=== PATIENT | male | born 1975 | race Caucasian/White ===

== ENCOUNTER 2017-04-14 10:34 | Day surgery (SDC) | payer BC, OTHER ==
[2017-04-12 13:08] VITALS: BMI 40.3
--- NOTE | 2017-04-14 03:48 | HP ---
HISTORY AND PHYSICAL CHIEF COMPLAINT: Occlusion of T-tube of the left ear. HISTORY OF PRESENT ILLNESS: This patient is a 42-year-old male who was recently seen in our office complaining of having drainage from the left ear. In the past, the patient had a T-type ventilation tube inserted into the left ear. At the time that he was seen in my office, clinical examination revealed that the T-tube appeared to be partially occluded and there was significant drainage coming from the left ear. The patient was placed on a 2 week course of antibiotic ear drops, Floxin. At the time that he was seen back in the office, the infection had cleared, but it appeared that the T-tube was occluded. Therefore, it was recommended that the patient undergo replacement of the T-tube tube under either IV sedation or general anesthesia. PAST MEDICAL HISTORY: Past medical history reveals that he has allergies to PENICILLIN, ERYTHROMYCIN and BACTRIM. His current medications include Diovan. Previous surgeries include left myringotomy with insertion of ventilation tube times 6 and right myringotomy with insertion of ventilation tubes x3, adenoidectomy, tonsillectomy and bilateral knee surgery. REVIEW OF SYSTEMS: Review of systems reveals that the cardiovascular system is positive for hypertension. The remainder of the review of systems is essentially unremarkable. PHYSICAL EXAMINATION: This patient is a 42-year-old male who is alert and cooperative. HEENT EXAMINATION: Patient is normocephalic. Examination of the right ear is unremarkable. The left ear reveals the patient has a T-tube present, which is occluded. The ear is dry. Pupils equal, round, react to light and accommodation. Extraocular movements within normal limits. Intranasal examination reveals moderate to severe septal deviation with compensatory hypertrophy of the inferior turbinates. Examination of the oropharynx, cranial nerves 2 through 12 and the remainder of the head, neck exam are all within normal limits. CHEST/CARDIOVASCULAR: Both lung cox are clear to percussion and auscultation. The patient is in regular sinus rhythm. S1 and S2 are present without evidence of any murmurs, S3s or S4. Peripheral pulses are bilaterally symmetrical and within normal limits. ABDOMEN: There is no evidence of any masses, megaly, or tenderness. The abdomen is soft. Skin is unremarkable. Musculoskeletal and neurological is unremarkable. RECTAL EXAM: The rectal exam is deferred at this time because the patient has this done on a regular basis at his family physician's office. The remainder of the physical exam is essentially unremarkable. IMPRESSION: Occluded left ventilation tube. PLAN: The patient is scheduled to undergo replacement of left T-type ventilation under either IV sedation or general anesthesia depending upon the anesthesia department's preference. Attention RNs in the pre-surgical area, I have not ordered any pre-surgical prophylactic antibiotics for this patient. If the pharmacy department sends any pre- surgical prophylactic antibiotics to the pre-surgical area for this patient, the should be returned and that order should be cancelled. Please make sure that the patient's account is credited appropriately. I have discussed the risks, benefits and alternative therapies for the above-mentioned procedure and for both sedation/analgesia as well as necessary blood product administration, if indicated, as they pertain to this patient. The patient has indicated his or her understanding and acceptance of the risks and procedures discussed. SOHEILA / KRISN: [id number] /
[~2017-04-14 10:34] MED LIST: DEXAMETHASONE SOD PHOSPHATE 10 MG/ML 1 ML VIAL IV ONE; HYDROmorphone 0.5 MG/0.5 ML SYRINGE IVP PRN; LACTATED RINGERS 1,000 ML IV SCH; LIDOCAINE 1% 20 ML VIAL (10MG/ML) FOR IV START INTRADERMA PRN; MIDAZOLAM 2 MG/2 ML VIAL IV PRN; ONDANSETRON 4 MG/2 ML VIAL IVP ONE; Pre Op ABX Message 1 EACH MISC MISCELLANE ONE; SCOPOLAMINE 1.5MG/72HR PATCH TRANSDERM ONE
[2017-04-14 11:35] VITALS: RESP 16; TEMP 97.7
[2017-04-14] MEDS ORDERED: GLYCOPYRROLATE 0.2 MG/ML 2 ML VIAL ONE (12:34)
[2017-04-14] MEDS ORDERED: KETOROLAC 30 MG/ML 1 ML VIAL ONE (12:34)
[2017-04-14] MEDS ORDERED: fentaNYL (PF) 50 MCG/ML 2 ML AMP ONE (12:34)
[2017-04-14] MEDS ORDERED: PROPOFOL 10 MG/ML 20 ML VIAL IV ONE (12:34)
[2017-04-14] MEDS ORDERED: MIDAZOLAM 2 MG/2 ML VIAL ONE (12:34)
[2017-04-14] MEDS ORDERED: KETAMINE 10 MG/ML 20 ML VIAL ONE (12:34)
[2017-04-14] MEDS ORDERED: OFLOXACIN 0.3% OTIC DROPS 5 ML BTL LEFT EAR ONE (12:50)
[2017-04-14] MEDS ORDERED: EPINEPHrine 1 MG/ML 1 ML AMP SQ ONE (13:03)
[2017-04-14 14:31] VITALS: BP 141/80; PULSE 76
--- NOTE | 2017-04-14 20:58 | PCN ---
PROCEDURE NOTE PREOPERATIVE DIAGNOSIS: Occluded left T-type ventilation tube. POSTOPERATIVE DIAGNOSES: 1. Occluded left T-type ventilation tube. 2. Left chronic serous otitis media. ANESTHESIA: IV sedation with MAC. OPERATIVE PROCEDURE: Left myringotomy with insertion of a Travis T-type ventilation tube. OPERATING SURGEON: Dr. Almaraz. COMPLICATIONS: None. OPERATIVE PROCEDURE: The patient was placed on operating table in the supine position and after uneventful induction and IV sedation, satisfactory sedation was obtained. Next, using the Zeiss operating microscope and a #3 aural speculum, the left external auditory canal was cleansed of all wax and debris. There was some dried blood in the canal and this was removed with a pair of alligator forceps. In addition to this, there was dried cerumen adherent to the left tympanic membrane. The T-tube was completely occluded and partially extruded. The T-tube was removed along with the waxy material that was adherent to the left tympanic membrane. Immediately that there was only a very small space anteriorly that would allow the insertion of a ventilation tube. Therefore, using the myringotomy knife, an incision was made in the anterior inferior quadrant of the left tympanic membrane. The left middle ear space was suctioned free of all fluid. Initially, an Activent T-type ventilation tube was attempted to be inserted, but unfortunately because of the size of this tube, it was not possible. This was mainly because the area of the tympanic membrane that was available for insertion was quite small. Therefore, it was elected to switch to a Travis T-type ventilation tube instead. This tube was inserted in the usual and customary fashion. At this point, the procedure was terminated. There were no intraoperative complications. Patient tolerated the procedure well and was returned to recovery room in satisfactory condition. MMODL / IJN: [id number] /
== END 2017-04-14 14:53 | disposition home or self-care (01) ==
LOC: OR 10:34
PROVIDERS: ATTEND Otolaryngology
DX: T85.898A Other specified complication of other internal prosthetic devices, implants and grafts, initial encounter (principal); H65.22 Chronic serous otitis media, left ear; I10 Essential (primary) hypertension; Z88.1 Allergy status to other antibiotic agents; Z88.0 Allergy status to penicillin; Z88.2 Allergy status to sulfonamides; Z79.899 Other long term (current) drug therapy; Z79.82 Long term (current) use of aspirin
CPT/HCPCS: 69436; J2250; J0171; J1100; J2405; J3010; J1885; J2704

== ENCOUNTER → 2017-06-06 | Outpatient (CLI) | payer OTHER ==
--- NOTE | 2017-06-06 08:18 | CT ---
EXAMINATION TYPE: CT abdomen pelvis w con DATE OF EXAM: 06/06/2017 COMPARISON: NONE HISTORY: Abdomiinal pain CT DLP: 3103.90 mGycm Automated exposure control for dose reduction was used. TECHNIQUE: Helical acquisition of images was performed from the lung bases through the pelvis. CONTRAST: Performed with Oral Contrast and with IV Contrast, patient injected with 100 ml mL of Omnipaque 300. FINDINGS: LUNG BASES: No significant abnormality is appreciated. LIVER/GB: No significant abnormality is appreciated. No cholelithiasis. PANCREAS: No significant abnormality is seen. No ductal dilatation. SPLEEN: No splenomegaly. ADRENALS: No nodularity or thickening. KIDNEYS: Kidneys enhance and excrete symmetrically. No hydronephrosis. FREE AIR: No free air is visualized. RETROPERITONEAL ADENOPATHY: None visualized REPRODUCTIVE ORGANS: Prostate gland is nonenlarged. URINARY BLADDER: Urinary bladder appears unremarkable. PELVIC ADENOPATHY: None visualized. OSSEOUS STRUCTURES: Mild multilevel degenerative changes of the visualized thoracolumbar spine are s een. BOWEL: Scattered colonic diverticula are seen without pericolonic fat stranding. Appendix is within normal limits. OTHER: Small bilateral fat filled inguinal hernias are noted. No abutting bowel. Abdominal aorta is o f normal course and caliber. Small periumbilical fat filled hernia has a neck measuring 1.2 cm. IMPRESSION: 1. NO ACUTE FINDING TO ACCOUNT FOR THE PATIENT'S SYMPTOMS. 2. BILATERAL SMALL FAT FILLED INGUINAL HERNIAS AND SMALL PERIUMBILICAL FAT FILLED HERNIA.
== END | disposition home or self-care (01) ==
LOC: RADCTMAIN 07:31
PROVIDERS: ATTEND Surgery
DX: K40.20 Bilateral inguinal hernia, without obstruction or gangrene, not specified as recurrent (principal); K42.9 Umbilical hernia without obstruction or gangrene
CPT/HCPCS: 74177; Q9967

== ENCOUNTER → 2017-09-04 | Outpatient (CLI) | payer OTHER ==
[2017-09-04 17:11] LABS: Appearance,BF Cloudy; Color,BF Yellow
[2017-09-04 17:12] LABS: Nucleated Cells, Body Fluid 2800 /uL; RBC, Body Fluid 800 /uL
[2017-09-04 17:15] LABS: Mononuclear WBC,Body Fluid 10 %; Polynuclear WBC,Body Fluid 90 %; Total Cells Counted,Body Fluid 100
== END | disposition home or self-care (01) ==
LOC: LABWHC1 14:59
PROVIDERS: ATTEND Orthopaedic Surgery
DX: M79.671 Pain in right foot (principal); M25.571 Pain in right ankle and joints of right foot
CPT/HCPCS: 36415; 84550; 87070; 87075; 87205; 89050; 89060

== ENCOUNTER 2018-10-17 13:51 | Emergency (ER) | payer OTHER ==
--- NOTE | 2018-10-17 14:11 | ED ---
Lower Extremity Injury HPI - General Chief Complaint: Extremity Injury, Lower Stated Complaint: [facility] rt foot injury Time Seen by Provider: 10/17/18 14:02 Source: patient Mode of arrival: ambulatory Limitations: no limitations - History of Present Illness Initial Comments: Patient is a 43-year-old male presenting to the ER with complaints of right foot pain after dropping a table onto his foot about an hour ago. Patient is able to bear weight and wiggle his toes. Patient denies pain in his ankle. Patient describes his pain as more soreness. Patient denies numbness and tingling. Patient denies any other injuries at this time. No significant past medical history. - Related Data Home Medications Medication Instructions Recorded Confirmed Aspirin [Adult Low Dose Aspirin EC] 81 mg PO QAM 04/12/17 04/14/17 Fexofenadine HCl [Sade Allergy] 180 mg PO DAILY 04/12/17 04/14/17 Valsartan/Hydrochlorothiazide 160 mg PO QAM 04/12/17 04/14/17 [Diovan Hct 160-12.5 mg Tab] Allergies Allergy/AdvReac Type Severity Reaction Status Date / Time erythromycin base AdvReac Abdominal Verified 10/17/18 14:02 Pain Penicillins AdvReac Swelling Verified 10/17/18 14:02 Review of Systems ROS Statement: Those systems with pertinent positive or pertinent negative responses have been documented in the HPI. ROS Other: All systems not noted in ROS Statement are negative. Past Medical History Past Medical History: Blood Disorder, Hypertension Additional Past Medical History / Comment(s): sarcoidosis of lungs, leiden factor 5 History of Any Multi-Drug Resistant Organisms: None Reported Past Surgical History: Adenoidectomy, Ear Surgery, Orthopedic Surgery, Tonsillectomy Additional Past Surgical History / Comment(s): scopes and removal of bone chip Past Anesthesia/Blood Transfusion Reactions: No Reported Reaction Past Psychological History: No Psychological Hx Reported Smoking Status: Never smoker Past Alcohol Use History: None Reported Past Drug Use History: None Reported General Exam - General Exam Comments Initial Comments: GENERAL: Well-appearing, well-nourished and in no acute distress. HEAD: Atraumatic, normocephalic. EYES: Pupils equal round and reactive to light, extraocular movements intact, sclera anicteric, conjunctiva are normal. ENT: TMs normal, nares patent, oropharynx clear without exudates. Moist mucous membranes. NECK: Normal range of motion, supple without lymphadenopathy or JVD. LUNGS: Breath sounds clear to auscultation bilaterally and equal. No wheezes rales or rhonchi. HEART: Regular rate and rhythm without murmurs, rubs or gallops. ABDOMEN: Soft, nontender, normoactive bowel sounds. No guarding, no rebound. No masses appreciated. : Deferred EXTREMITIES: Pain with palpation on the dorsal aspect of the right foot on the proximal aspect of the first through third toes. There is an area of edema and ecchymosis with a table hip. Right foot is neurovascular intact. Full range of motion of all right toes and ankle. NEUROLOGICAL: Cranial nerves II through XII grossly intact. Normal speech, normal gait. PSYCH: Normal mood, normal affect. SKIN: Warm, Dry, normal turgor, no rashes or lesions noted. Limitations: no limitations Course Vital Signs 10/17/18 14:00 Temperature 98.9 F Pulse Rate 106 H Respiratory 18 Rate Blood Pressure 133/90 O2 Sat by Pulse 96 Oximetry Medical Decision Making - Medical Decision Making Patient is a 43-year-old male presenting to the ER with complaints of right foot pain after dropping a table on it today. Patient is neurovascular intact. Pain, edema, and ecchymosis over the right distal foot dorsal aspect. X-ray of the right foot reveals no acute fractures/dislocations. Patient will be discharged home. Disposition Clinical Impression: Contusion of right foot Disposition: HOME SELF-CARE Condition: Stable Instructions (If sedation given, give patient instructions): Foot Contusion (ED) Additional Instructions: Please return to the Emergency Department if symptoms worsen or any other concerns. Follow up with PCP and 10-12 days if pain continues for reevaluation. Is patient prescribed a controlled substance at d/c from ED?: No Referrals: Eulalio Pena MD [Primary Care Provider] - 1-2 days
--- NOTE | 2018-10-17 14:35 | XR ---
EXAMINATION TYPE: XR foot complete RT DATE OF EXAM: 10/17/2018 COMPARISON: NONE HISTORY: Pain TECHNIQUE: Three views are submitted. FINDINGS: The osseous structures are intact. There is no acute fracture or dislocation. Arthropathy of the f irst MTP joint. Calcaneal spurs noted.. IMPRESSION: 1. No acute fracture or dislocation. If symptoms persist, follow-up exam in 7 to 10 days could be ob tained.
[2018-10-17 14:49] VITALS: BP 132/89; PULSE 89; RESP 16; TEMP 98.7
== END 2018-10-17 14:48 | disposition home or self-care (01) ==
LOC: EC 13:51
DX: S90.31XA Contusion of right foot, initial encounter (principal); I10 Essential (primary) hypertension; Z88.0 Allergy status to penicillin; Z88.1 Allergy status to other antibiotic agents; Z79.82 Long term (current) use of aspirin; Z79.899 Other long term (current) drug therapy; W20.8XXA Other cause of strike by thrown, projected or falling object, initial encounter; Y99.0 Civilian activity done for income or pay
CPT/HCPCS: 99283

== ENCOUNTER 2019-05-22 02:39 | Emergency (ER) | payer BC, OTHER ==
[2019-05-22 02:47] VITALS: BP 149/98; RESP 18
[2019-05-22] MEDS ORDERED: FAMOTIDINE 20 MG TAB PO STA (03:11)
[2019-05-22] MEDS ORDERED: ONDANSETRON 4 MG ODT STARTER PACK 2 TAB BTL PO STA (03:11)
[2019-05-22] MEDS ORDERED: diphenhydrAMINE 50 MG/ML 1 ML VIAL IM STA (03:11)
--- NOTE | 2019-05-22 03:16 | ED ---
Allergic Reaction HPI - General Chief complaint: Allergic Reaction Stated complaint: Allergic Reaction Time Seen by Provider: 05/22/19 02:56 Source: patient, RN notes reviewed, old records reviewed Mode of arrival: ambulatory - History of Present Illness Initial Comments: 44 year old male with sinusitis and upper respiratory congestion. Patient reports that he was started on cefdinir and has taken 3 pills of this. Patient reports history of penicillin allergy. PAtient reports since taking these medication a red rash over chest, nausea, and diarrhea. - Related Data Home Medications Medication Instructions Recorded Confirmed Aspirin [Adult Low Dose Aspirin EC] 81 mg PO QAM 04/12/17 04/14/17 Fexofenadine HCl [Sade Allergy] 180 mg PO DAILY 04/12/17 04/14/17 Valsartan/Hydrochlorothiazide 160 mg PO QAM 04/12/17 04/14/17 [Diovan Hct 160-12.5 mg Tab] Previous Rx's Medication Instructions Recorded Doxycycline [Vibramycin] 100 mg PO BID #14 cap 05/22/19 Famotidine [Pepcid] 20 mg PO BID #12 tablet 05/22/19 diphenhydrAMINE [Benadryl] 25 mg PO BID PRN #20 capsule 05/22/19 Allergies Allergy/AdvReac Type Severity Reaction Status Date / Time erythromycin base AdvReac Abdominal Verified 05/22/19 02:46 Pain Penicillins AdvReac Swelling Verified 05/22/19 02:46 Review of Systems ROS Statement: Those systems with pertinent positive or pertinent negative responses have been documented in the HPI. ROS Other: All systems not noted in ROS Statement are negative. Past Medical History Past Medical History: Blood Disorder, Hypertension Additional Past Medical History / Comment(s): sarcoidosis of lungs, leiden factor 5 History of Any Multi-Drug Resistant Organisms: None Reported Past Surgical History: Adenoidectomy, Ear Surgery, Orthopedic Surgery, Tonsillectomy Additional Past Surgical History / Comment(s): scopes and removal of bone chip Past Anesthesia/Blood Transfusion Reactions: No Reported Reaction Past Psychological History: No Psychological Hx Reported Smoking Status: Never smoker Past Alcohol Use History: Occasional Past Drug Use History: None Reported General Exam Limitations: physical limitation General appearance: alert, in no apparent distress Head exam: Present: atraumatic, normocephalic, normal inspection Eye exam: Present: normal appearance, PERRL, EOMI. Absent: scleral icterus, conjunctival injection, periorbital swelling ENT exam: Present: normal exam, mucous membranes moist Neck exam: Present: normal inspection. Absent: tenderness, meningismus, lymphadenopathy Respiratory exam: Present: normal lung sounds bilaterally. Absent: respiratory distress, wheezes, rales, rhonchi, stridor Cardiovascular Exam: Present: regular rate, normal rhythm, normal heart sounds. Absent: systolic murmur, diastolic murmur, rubs, gallop, clicks GI/Abdominal exam: Present: soft, normal bowel sounds. Absent: distended, tenderness, guarding, rebound, rigid Extremities exam: Present: normal inspection, full ROM, normal capillary refill. Absent: tenderness, pedal edema, joint swelling, calf tenderness Back exam: Present: normal inspection Neurological exam: Present: alert, oriented X3, CN II-XII intact Psychiatric exam: Present: normal affect, normal mood Skin exam: Present: warm, dry, intact, normal color, rash (erythematous rash over chest, hives) Course Vital Signs 05/22/19 05/22/19 05/22/19 02:40 02:46 03:50 Temperature 98.5 F 98 F Pulse Rate 81 77 Respiratory 18 18 18 Rate Blood Pressure 149/98 O2 Sat by Pulse 95 98 Oximetry Medical Decision Making - Medical Decision Making 44 year old male with allergic reaction to cefdinir. Patient has erythematous rash over chest. Patient at this time has given benadryl, and pepcid. He is already taking steriods fror URI. Discussed discontinuing cedinir and can switch to doxycycline. Discussed return parameters. Disposition Clinical Impression: Reaction, drug, adverse, URI (upper respiratory infection), Sinusitis Disposition: HOME SELF-CARE Condition: Good Instructions (If sedation given, give patient instructions): Antibiotic Medication Allergy (ED) Additional Instructions: Patient advised to continue the steroids as prescribed. Using Pepcid and Benadryl as well. Patient advised to switch the antibiotic to doxycycline, patient should have crackers or small meal with medication. Return to ED if any alarming signs or symptoms occur. Prescriptions: diphenhydrAMINE [Benadryl] 25 mg PO BID PRN #20 capsule PRN Reason: Itching Famotidine [Pepcid] 20 mg PO BID #12 tablet Doxycycline [Vibramycin] 100 mg PO BID #14 cap Is patient prescribed a controlled substance at d/c from ED?: No Referrals: Eulalio Pena MD [Primary Care Provider] - 1-2 days Time of Disposition: 03:13
[2019-05-22 03:51] VITALS: PULSE 77; TEMP 98
== END 2019-05-22 03:51 | disposition home or self-care (01) ==
LOC: EC 02:39
DX: J06.9 Acute upper respiratory infection, unspecified (principal); T36.1X5A Adverse effect of cephalosporins and other beta-lactam antibiotics, initial encounter; J32.9 Chronic sinusitis, unspecified; I10 Essential (primary) hypertension; Z79.82 Long term (current) use of aspirin; Z79.899 Other long term (current) drug therapy; Z88.0 Allergy status to penicillin; Z88.1 Allergy status to other antibiotic agents
CPT/HCPCS: 99283; 96372; J1200; S0119

== ENCOUNTER → 2019-06-03 | Outpatient (CLI) | payer BC ==
[2019-06-03 10:40] LABS: Basophils # (A) 0.2 k/uL (0-0.2); Basophils % (A) 2 %; Eosinophils # (A) 0.2 k/uL (0-0.7); Eosinophils % (A) 2 %; HCT 52.5 % (39.0-53.0); HGB 17.1 gm/dL (13.0-17.5); Lymphocytes % (A) 19 %; MCH 30.2 pg (25.0-35.0); MCHC 32.7 g/dL (31.0-37.0); MCV 92.4 fL (80.0-100.0); Mean Platelet Volume 6.6; Monocytes # (A) 0.6 k/uL (0-1.0); Monocytes % (A) 6 %; Neutrophils # (A) 7.7 k/uL (1.3-7.7); Neutrophils % (A) 70 %; Platelet Count 256 k/uL (150-450); RBC 5.68 m/uL (4.30-5.90); RDW 12.3 % (11.5-15.5); WBC 10.9 k/uL (3.8-10.6)
[2019-06-03 17:09] LABS: African American GFR (CKD) 104.1 (60.0-200.0); Albumin 4.2 g/dL (3.80-4.90); Albumin/Globulin Ratio 1.75 (1.60-3.17); Anion Gap 9.1 mmol/L (4.00-12.00); Calcium 9.2 mg/dL (8.7-10.3); Carbon Dioxide 24.9 mmol/L (21.6-31.8); Globulin 2.4 g/dL (1.6-3.3); Non-African American GFR(CKD) 89.9 (60.0-200.0); Potassium 4.1 mmol/L (3.5-5.5); Total Bilirubin 0.7 mg/dL (0.2-1.2); Total Protein 6.6 g/dL (6.2-8.2)
== END | disposition home or self-care (01) ==
LOC: LABWHC1 09:35
PROVIDERS: ATTEND Internal Medicine Critical Care Medicine
DX: D86.0 Sarcoidosis of lung (principal)
CPT/HCPCS: 36415; 80053; 85025

== ENCOUNTER 2024-03-28 07:50 | Emergency (ER) | payer BC ==
[2024-03-28 07:54] VITALS: RESP 20; TEMP 98.2
--- NOTE | 2024-03-28 08:03 | ED ---
General Adult HPI - General Chief complaint: Abdominal Pain Stated complaint: L side pain Time Seen by Provider: 03/28/24 07:56 Source: patient, RN notes reviewed Mode of arrival: ambulatory Limitations: no limitations - History of Present Illness Initial comments: Patient is a 49-year-old male presenting to the emergency department with concern for abdominal discomfort. Discomfort woke him from sleep around 5:30 AM. Patient has had some nausea and dry heaves. Discomfort has been somewhat waxing and waning and is rated 6/10. No history of similar symptoms previously. Patient had a normal bowel movement this morning. No constipation or diarrhea. No fever. - Related Data Home Medications Medication Instructions Recorded Confirmed Aspirin [Adult Low Dose Aspirin EC] 81 mg PO QAM 04/12/17 04/14/17 Fexofenadine HCl [Sade Allergy] 180 mg PO DAILY 04/12/17 04/14/17 Valsartan/Hydrochlorothiazide 160 mg PO QAM 04/12/17 04/14/17 [Diovan Hct 160-12.5 mg Tab] Previous Rx's Medication Instructions Recorded Doxycycline [Vibramycin] 100 mg PO BID #14 cap 05/22/19 Famotidine [Pepcid] 20 mg PO BID #12 tablet 05/22/19 diphenhydrAMINE [Benadryl] 25 mg PO BID PRN #20 capsule 05/22/19 Ketorolac [Toradol] 10 mg PO Q6HR PRN #15 tab 03/28/24 Metoclopramide HCl [Reglan] 10 mg PO Q6HR PRN #15 tablet 03/28/24 Allergies Allergy/AdvReac Type Severity Reaction Status Date / Time erythromycin base AdvReac Abdominal Verified 05/22/19 02:46 Pain Penicillins AdvReac Swelling Verified 05/22/19 02:46 Review of Systems ROS Statement: Those systems with pertinent positive or pertinent negative responses have been documented in the HPI. ROS Other: All systems not noted in ROS Statement are negative. Constitutional: Denies: fever Eyes: Denies: eye pain ENT: Denies: ear pain Respiratory: Denies: cough, dyspnea Cardiovascular: Denies: chest pain Gastrointestinal: Reports: as per HPI, abdominal pain, nausea Genitourinary: Denies: urgency, dysuria, frequency, hematuria Musculoskeletal: Denies: back pain Past Medical History Past Medical History: Blood Disorder, Hypertension Additional Past Medical History / Comment(s): sarcoidosis of lungs, leiden factor 5 History of Any Multi-Drug Resistant Organisms: None Reported Past Surgical History: Adenoidectomy, Ear Surgery, Orthopedic Surgery, Tonsillectomy Additional Past Surgical History / Comment(s): scopes and removal of bone chip Past Anesthesia/Blood Transfusion Reactions: No Reported Reaction Past Psychological History: No Psychological Hx Reported Smoking Status: Never smoker Past Alcohol Use History: Occasional Past Drug Use History: None Reported General Exam Limitations: no limitations General appearance: alert, in no apparent distress Head exam: Present: normocephalic Eye exam: Present: normal appearance Neck exam: Present: normal inspection Respiratory exam: Present: normal lung sounds bilaterally Cardiovascular Exam: Present: regular rate, normal rhythm Expanded Peripheral pulses: 2+: Posterior Tibialis (R), Posterior Tibialis (L) GI/Abdominal exam: Present: soft. Absent: distended, tenderness, guarding, rebound, rigid, pulsatile mass Extremities exam: Present: normal inspection. Absent: pedal edema, calf tenderness Back exam: Present: normal inspection. Absent: CVA tenderness (L) Neurological exam: Present: alert Psychiatric exam: Present: normal affect, normal mood Skin exam: Present: normal color Course Vital Signs 03/28/24 07:51 Temperature 98.2 F Pulse Rate 58 L Respiratory 20 Rate Blood Pressure 161/99 O2 Sat by Pulse 100 Oximetry Medical Decision Making - Medical Decision Making Was pt. sent in by a medical professional or institution (, PA, LAUNDRY CLERK, urgent care, hospital, or prison...) When possible be specific @ -No Did you speak to anyone other than the patient for history (EMS, parent, family, police, friend...)? What history was obtained from this source @ -No Did you review nursing and triage notes (agree or disagree)? Why? @ -I reviewed and agree with nursing and triage notes Were old charts reviewed (outside hosp., previous admission, EMS record, old EKG, old radiological studies, urgent care reports/EKG's, prison records)? Report findings @ -No old charts were reviewed Differential Diagnosis (chest pain, altered mental status, abdominal pain women, abdominal pain men, vaginal bleeding, weakness, fever, dyspnea, syncope, headache, dizziness, GI bleed, back pain, seizure, CVA, palpatations, mental health, musculoskeletal)? @ -Differential Abdominal Pain Men: Appendicitis, cholecystitis, diverticulosis, ischemic bowel, pancreatitis, hepatitis, UTI, gastroenteritis, AAA, incarcerated hernia, bowel obstruction, constipation, inflammatory bowel, hepatitis, peptic ulcer disease, splenic infarction, perforated viscus, testicular torsion, this is not meant to be an all-inclusive list EKG interpreted by me (3pts min.). @ -As above X-rays interpreted by me (1pt min.). @ -None done CT interpreted by me (1pt min.). @ -CT scan abdomen pelvis shows proximal left ureteral stone U/S interpreted by me (1pt. min.). @ -None done What testing was considered but not performed or refused? (CT, X-rays, U/S, labs)? Why? @ -None What meds were considered but not given or refused? Why? @ -None Did you discuss the management of the patient with other professionals (professionals i.e. , PA, LAUNDRY CLERK, lab, RT, psych nurse, social security benefits interviewer, slip mixer, teacher, personal banking officer, sample case porter)? Give summary @ -No Was smoking cessation discussed for >3mins.? @ -No Was critical care preformed (if so, how long)? @ -No Were there social determinants of health that impacted care today? How? (Homelessness, low income, unemployed, alcoholism, drug addiction, transport ation, low edu. Level, literacy, decrease access to med. care, longterm, rehab)? @ -No Was there de-escalation of care discussed even if they declined (Discuss DNR or withdrawal of care, Hospice)? DNR status @ -No What co-morbidities impacted this encounter? (DM, HTN, Smoking, COPD, CAD, Cancer, CVA, ARF, Chemo, Hep., AIDS, mental health diagnosis, sleep apnea, morbid obesity)? @ -None Was patient admitted / discharged? Hospital course, mention meds given and route, prescriptions, significant lab abnormalities, going to OR and other pertinent info. @ -Patient reevaluated and feeling much better, discomfort rated 2/10. Patient is updated on results and need for follow-up. Undiagnosed new problem with uncertain prognosis? @ -No Drug Therapy requiring intensive monitoring for toxicity (Heparin, Nitro, Insulin, Cardizem)? @ -No Were any procedures done? @ -No Diagnosis/symptom? @ -Ureteral lithiasis Acute, or Chronic, or Acute on Chronic? @ -Acute Uncomplicated (without systemic symptoms) or Complicated (systemic symptoms)? @ -Default Side effects of treatment? @ -No Exacerbation, Progression, or Severe Exacerbation? @ -No Poses a threat to life or bodily function? How? (Chest pain, USA, CT, pneumonia, PE, COPD, DKA, ARF, appy, cholecystitis, CVA, Diverticulitis, Homicidal, Suicidal, threat to staff... and all critical care pts) @ -Threat to renal function - Lab Data Result diagrams: 03/28/24 08:14 03/28/24 08:14 Lab Results 03/28/24 03/28/24 03/28/24 Range/Units 08:14 08:14 08:14 WBC 9.5 (3.8-10.6) k/uL RBC 5.68 (4.30-5.90) m/uL Hgb 17.3 (13.0-17.5) gm/dL Hct 51.5 (39.0-53.0) % MCV 90.8 (80.0-100.0) fL MCH 30.5 (25.0-35.0) pg MCHC 33.6 (31.0-37.0) g/dL RDW 12.5 (11.5-15.5) % Plt Count 261 (150-450) k/uL MPV 7.1 Neutrophils % 79 % Lymphocytes % 14 % Monocytes % 5 % Eosinophils % 1 % Basophils % 0 % Neutrophils # 7.5 (1.3-7.7) k/uL Lymphocytes # 1.3 (1.0-4.8) k/uL Monocytes # 0.5 (0-1.0) k/uL Eosinophils # 0.1 (0-0.7) k/uL Basophils # 0.0 (0-0.2) k/uL PT 11.4 (10.0-12.5) sec INR 1.0 (<1.2) APTT 25.3 (22.0-30.0) sec Sodium (137-145) mmol/L Potassium (3.5-5.1) mmol/L Chloride (98-107) mmol/L Carbon Dioxide (22-30) mmol/L Anion Gap mmol/L BUN (9-20) mg/dL Creatinine (0.66-1.25) mg/dL Est GFR (CKD-EPI)AfAm (>60 ml/min/1.73 sqM) Est GFR (CKD-EPI)NonAf (>60 ml/min/1.73 sqM) Glucose (74-99) mg/dL Calcium (8.4-10.2) mg/dL Total Bilirubin (0.2-1.3) mg/dL AST (17-59) U/L ALT (4-49) U/L Alkaline Phosphatase (38-126) U/L Total Protein (6.3-8.2) g/dL Albumin (3.5-5.0) g/dL Amylase (30-110) U/L Lipase (23-300) U/L Urine Color Yellow Urine Appearance Clear (Clear) Urine pH 5.5 (5.0-8.0) Ur Specific [place] 1.022 (1.001-1.035) Urine Protein Negative (Negative) Urine Glucose (UA) Negative (Negative) Urine Ketones Negative (Negative) Urine Blood Large H (Negative) Urine Nitrite Negative (Negative) Urine Bilirubin Negative (Negative) Urine Urobilinogen <2.0 (<2.0) mg/dL Ur Leukocyte Esterase Negative (Negative) Urine RBC >182 H (0-5) /hpf Urine WBC <1 (0-5) /hpf Hyaline Casts 1 (0-2) /lpf Urine Mucus Occasional H (None) /hpf 03/28/24 Range/Units 08:14 WBC (3.8-10.6) k/uL RBC (4.30-5.90) m/uL Hgb (13.0-17.5) gm/dL Hct (39.0-53.0) % MCV (80.0-100.0) fL MCH (25.0-35.0) pg MCHC (31.0-37.0) g/dL RDW (11.5-15.5) % Plt Count (150-450) k/uL MPV Neutrophils % % Lymphocytes % % Monocytes % % Eosinophils % % Basophils % % Neutrophils # (1.3-7.7) k/uL Lymphocytes # (1.0-4.8) k/uL Monocytes # (0-1.0) k/uL Eosinophils # (0-0.7) k/uL Basophils # (0-0.2) k/uL PT (10.0-12.5) sec INR (<1.2) APTT (22.0-30.0) sec Sodium 140 (137-145) mmol/L Potassium 4.0 (3.5-5.1) mmol/L Chloride 106 (98-107) mmol/L Carbon Dioxide 27 (22-30) mmol/L Anion Gap 7 mmol/L BUN 17 (9-20) mg/dL Creatinine 1.09 (0.66-1.25) mg/dL Est GFR (CKD-EPI)AfAm >90 (>60 ml/min/1.73 sqM) Est GFR (CKD-EPI)NonAf 78 (>60 ml/min/1.73 sqM) Glucose 148 H (74-99) mg/dL Calcium 9.3 (8.4-10.2) mg/dL Total Bilirubin 0.9 (0.2-1.3) mg/dL AST 27 (17-59) U/L ALT 30 (4-49) U/L Alkaline Phosphatase 60 (38-126) U/L Total Protein 7.5 (6.3-8.2) g/dL Albumin 4.5 (3.5-5.0) g/dL Amylase 81 (30-110) U/L Lipase 142 (23-300) U/L Urine Color Urine Appearance (Clear) Urine pH (5.0-8.0) Ur Specific [place] (1.001-1.035) Urine Protein (Negative) Urine Glucose (UA) (Negative) Urine Ketones (Negative) Urine Blood (Negative) Urine Nitrite (Negative) Urine Bilirubin (Negative) Urine Urobilinogen (<2.0) mg/dL Ur Leukocyte Esterase (Negative) Urine RBC (0-5) /hpf Urine WBC (0-5) /hpf Hyaline Casts (0-2) /lpf Urine Mucus (None) /hpf Disposition Clinical Impression: Ureterolithiasis Disposition: HOME SELF-CARE Condition: Stable Instructions (If sedation given, give patient instructions): Kidney Stones (ED) Additional Instructions: Prescription sent to pharmacy. Please do follow-up with your primary care physician in the next day or 2 for recheck. Number provided for urology. Return for fevers, uncontrolled pain, vomiting, worsening symptoms or any other concerns Prescriptions: Metoclopramide HCl [Reglan] 10 mg PO Q6HR PRN #15 tablet PRN Reason: Nausea Ketorolac [Toradol] 10 mg PO Q6HR PRN #15 tab PRN Reason: Pain Is patient prescribed a controlled substance at d/c from ED?: No Referrals: Eulalio Pena MD [Primary Care Provider] - 1-2 days Rishi Rust MD [STAFF PHYSICIAN] - 1-2 days Time of Disposition: 09:00
[2024-03-28] MEDS: SODIUM CHLORIDE 0.9% 1,000 ML IV STA (08:11)
[2024-03-28] MEDS: KETOROLAC 15 MG/ML 1 ML VIAL IVP STA (08:11)
[2024-03-28] MEDS: METOCLOPRAMIDE 5 MG/ML 2 ML VIAL IVP STA (08:12)
[2024-03-28 08:28] LABS: Appearance,Urine Clear (Clear); Basophils % (A) 0 %; Bilirubin,Urine Negative (Negative); Blood,Urine Large (Negative); Color,Urine Yellow; Eosinophils # (A) 0.1 k/uL (0-0.7); Eosinophils % (A) 1 %; Glucose,Urine (UA) Negative (Negative); HCT 51.5 % (39.0-53.0); HGB 17.3 gm/dL (13.0-17.5); Hyaline Casts,Urine 1 /lpf (0-2); Ketones,Urine Negative (Negative); Leukocyte Esterase,Urine Negative (Negative); Lymphocytes # (A) 1.3 k/uL (1.0-4.8); Lymphocytes % (A) 14 %; MCH 30.5 pg (25.0-35.0); MCHC 33.6 g/dL (31.0-37.0); MCV 90.8 fL (80.0-100.0); Mean Platelet Volume 7.1; Monocytes # (A) 0.5 k/uL (0-1.0); Monocytes % (A) 5 %; Mucus,Urine Occasional /hpf; Neutrophils # (A) 7.5 k/uL (1.3-7.7); Neutrophils % (A) 79 %; Nitrite,Urine Negative (Negative); PH, Urine 5.5 (5.0-8.0); Platelet Count 261 k/uL (150-450); Protein,Urine Negative (Negative); RBC 5.68 m/uL (4.30-5.90); RBC,Urine >182 /hpf (0-5); RDW 12.5 % (11.5-15.5); Specific Gravity,Urine 1.022 (1.001-1.035); Urobilinogen,Urine <2.0 mg/dL (<2.0); WBC 9.5 k/uL (3.8-10.6); WBC,Urine <1 /hpf (0-5)
--- NOTE | 2024-03-28 08:33 | CT ---
EXAMINATION TYPE: CT abdomen pelvis wo con DATE OF EXAM: 03/28/2024 8:27 AM COMPARISON: 06/06/2017 CLINICAL INDICATION: Male, 49 years old with history of abdominal pain, llq, Abdominal pain, LLQ/flan k pain, dry heaves x 3 hours TECHNIQUE: Axial images with sagittal coronal reformats. Examination of the solid and hollow viscera is limited given the lack of contrast. CT DLP: 1171 mGycm, Automated exposure control for dose reduction was used. FINDINGS: LUNG BASES: No evidence for nodule. No evidence for infiltrate. LIVER/GB: The gallbladder is unremarkable. No space-occupying hepatic lesion. PANCREAS: No pancreatic mass identified. No inflammatory process seen. SPLEEN: No evidence for splenomegaly. No intrasplenic lesions seen. ADRENALS: No adrenal nodules identified. No evidence for thickening. KIDNEYS: 4 mm proximal left ureteral calculus just distal to the UPJ results in mild left-sided hydro nephrosis and renal edema. Mild perinephric stranding. No additional calculi seen bilaterally. No juani id renal masses. BOWEL: Appendix has a normal appearance. No evidence of bowel obstruction. No inflammatory process. Lymph nodes: No evidence for adenopathy greater than 1 cm. Abdominal aorta: Atheromatous changes seen. No evidence for aneurysm. Genital organs: No significant abnormality. Other: No significant abnormality. IMPRESSION: 4 mm proximal left ureteral calculus just distal to the UPJ results in mild left-sided hydronephrosis and renal edema. Mild perinephric stranding. No additional calculi seen bilaterally. [facility], , 03/28/2024 8:31 AM
[2024-03-28 08:34] LABS: Partial Thromboplastin Time 25.3 sec (22.0-30.0); Prothrombin Time 11.4 sec (10.0-12.5)
[2024-03-28 08:36] LABS: ALT 30 U/L (4-49); AST 27 U/L (17-59); African American GFR (CKD) >90 (>60 ml/min/1.73 sqM); Albumin 4.5 g/dL (3.5-5.0); Alkaline Phosphatase 60 U/L (38-126); Amylase 81 U/L (30-110); Anion Gap 7 mmol/L; Blood Urea Nitrogen 17 mg/dL (9-20); Calcium 9.3 mg/dL (8.4-10.2); Carbon Dioxide 27 mmol/L (22-30); Chloride 106 mmol/L (98-107); Glucose 148 mg/dL (74-99); Lipase 142 U/L (23-300); Non-African American GFR(CKD) 78 (>60 ml/min/1.73 sqM); Sodium 140 mmol/L (137-145); Total Bilirubin 0.9 mg/dL (0.2-1.3); Total Protein 7.5 g/dL (6.3-8.2)
[2024-03-28 09:05] VITALS: BP 140/84; PULSE 59
== END 2024-03-28 09:11 | disposition home or self-care (01) ==
LOC: EC 07:50
DX: N13.2 Hydronephrosis with renal and ureteral calculous obstruction (principal); Z88.0 Allergy status to penicillin; Z88.1 Allergy status to other antibiotic agents
CPT/HCPCS: 99284 ×2; 96374 ×2; 96375 ×2; 96361 ×2; 36415; 80053; 82150; 83690; 85025; 85610; 85730; 81001; 74176; J2765; J1885